=== PATIENT | female | born 1985 | race Caucasian/White ===

== ENCOUNTER 2017-05-04 12:10 | Emergency (ER) | payer OTHER ==
[2017-05-04 12:18] VITALS: RESP 18
[2017-05-04 12:50] LABS: Basophils % (A) 0 %; Eosinophils # (A) 0.1 k/uL (0-0.7); Eosinophils % (A) 1 %; HCT 38.5 % (34.0-46.0); HGB 12.9 gm/dL (11.4-16.0); Lymphocytes # (A) 2.7 k/uL (1.0-4.8); Lymphocytes % (A) 26 %; MCH 27.4 pg (25.0-35.0); MCHC 33.6 g/dL (31.0-37.0); MCV 81.6 fL (80.0-100.0); Mean Platelet Volume 7.6; Monocytes # (A) 0.5 k/uL (0-1.0); Monocytes % (A) 5 %; Neutrophils # (A) 6.7 k/uL (1.3-7.7); Neutrophils % (A) 66 %; Platelet Count 274 k/uL (150-450); RBC 4.72 m/uL (3.80-5.40); WBC 10.3 k/uL (3.8-10.6)
[2017-05-04 13:18] LABS: ALT 25 U/L (9-52); AST 27 U/L (14-36); Alkaline Phosphatase 68 U/L (38-126); Amylase 45 U/L (30-110); Anion Gap 16 mmol/L; Blood Urea Nitrogen 13 mg/dL (7-17); Calcium 10.2 mg/dL (8.4-10.2); Carbon Dioxide 23 mmol/L (22-30); Chloride 106 mmol/L (98-107); Glucose 78 mg/dL (74-99); Lipase 89 U/L (23-300); Potassium 3.8 mmol/L (3.5-5.1); Sodium 145 mmol/L (137-145); Total Bilirubin 1.4 mg/dL (0.2-1.3); Total Protein 8.2 g/dL (6.3-8.2)
[2017-05-04] MEDS ORDERED: KETOROLAC 30 MG/ML 1 ML VIAL IVP STA (13:51)
[2017-05-04] MEDS ORDERED: FAMOTIDINE 20 MG/2 ML VIAL IV STA (13:51)
[2017-05-04] MEDS ORDERED: ONDANSETRON 4 MG/2 ML VIAL IVP STA (13:51)
[2017-05-04] MEDS ORDERED: SODIUM CHLORIDE 0.9% 2,000 ML IV STA (13:52)
--- NOTE | 2017-05-04 13:59 | ED ---
Abdominal Pain HPI - General Chief Complaint: Abdominal Pain Stated Complaint: Abd Pain Time Seen by Provider: 05/04/17 13:39 Source: patient Mode of arrival: wheelchair Limitations: no limitations - History of Present Illness Initial Comments: Patient with history of Crohn's disease, denies other past medical history, presents with vomiting, abdominal pain. Patient states she drank alcohol last night which "not supposed to", states it always gives her similar symptoms to today. Patient states she woke up this morning and started vomiting, has had fatigue, body aches. Patient states she had a normal bowel movement this morning. Denies any blood in stool or vomit. Patient denies fevers, chills, changes in urination, vaginal bleeding or discharge, URI symptoms, cough. Patient states she was otherwise healthy and asymptomatic prior to onset of symptoms this morning. Patient states she is on tramadol and Xanax at home. Patient states she has ALLERGY to Reglan and Dilaudid. He states she can take Toradol, states it works very well for her pain usually. Patient denies history of liver disease. MD Complaint: abdominal pain - Related Data Home Medications Medication Instructions Recorded Confirmed ALPRAZolam [Xanax] 0.5 mg PO BID PRN 05/04/17 05/04/17 traMADol HCL [Ultram] 50 mg PO Q4HR PRN 05/04/17 05/04/17 Previous Rx's Medication Instructions Recorded Ondansetron Odt [Zofran Odt] 4 mg PO Q8HR PRN #10 tab 05/04/17 Allergies Allergy/AdvReac Type Severity Reaction Status Date / Time hydromorphone [From Dilaudid] Allergy Confusion Verified 05/04/17 13:36 naproxen Allergy Chest Pain Verified 05/04/17 13:36 Review of Systems ROS Statement: Those systems with pertinent positive or pertinent negative responses have been documented in the HPI. ROS Other: All systems not noted in ROS Statement are negative. Constitutional: Reports: weakness (generalized). Denies: fever, chills Eyes: Denies: vision change ENT: Denies: throat pain, congestion Respiratory: Denies: cough Cardiovascular: Denies: chest pain Endocrine: Reports: fatigue Gastrointestinal: Reports: abdominal pain, nausea, vomiting. Denies: diarrhea, constipation, hematemesis, melena, hematochezia Genitourinary: Denies: urgency, dysuria, frequency, hematuria, discharge Musculoskeletal: Reports: myalgia Skin: Denies: rash, change in color Neurological: Denies: headache Past Medical History Additional Past Medical History / Comment(s): crohns disease, IBS History of Any Multi-Drug Resistant Organisms: None Reported Past Surgical History: Section, Cholecystectomy Additional Past Surgical History / Comment(s): Jaw surgery Past Psychological History: Anxiety Smoking Status: Light tobacco smoker Past Alcohol Use History: Rare Past Drug Use History: None Reported General Exam - General Exam Comments Initial Comments: Sitting up on bed. No acute distress. Conversing normally. Calm, pleasant, smiling. Well appearing. Limitations: no limitations General appearance: alert, in no apparent distress Head exam: Present: atraumatic, normocephalic Eye exam: Present: normal appearance, PERRL, EOMI ENT exam: Present: mucous membranes moist Neck exam: Present: normal inspection Respiratory exam: Present: normal lung sounds bilaterally. Absent: respiratory distress, wheezes, rales, rhonchi Cardiovascular Exam: Present: regular rate, normal rhythm GI/Abdominal exam: Present: soft, normal bowel sounds, other (Abdomen soft nontender. McBurney's negative Mccurdy sign negative. ). Absent: distended, tenderness, guarding, rebound, rigid Extremities exam: Present: other (No gross deformities) Neurological exam: Present: alert, oriented X3 Psychiatric exam: Present: normal affect, normal mood Skin exam: Present: warm, dry, intact, normal color. Absent: rash, cyanosis, diaphoretic, erythema Course Vital Signs 05/04/17 12:14 Temperature 97.2 F L Pulse Rate 87 Respiratory 18 Rate Blood Pressure 121/78 O2 Sat by Pulse 100 Oximetry Medical Decision Making - Medical Decision Making Labs & xray ordered in triage. Xray cancelled, do not feel necessary at this time. No significant lab abnormalities. Do not feel any addition lab orders necessary at this time. Patient agrees to Toradol, Zofran, Pepcid, IV fluids. Denies allergy to Toradol , states it works well for her. Patient states she recently moved to [place] from [place] 2 years ago. States last visit to the hospital for Crohn's disease was over 2 years ago. UA neg Preg neg Patient reevaluated, states she's symptoms are resolved status post medications. States "now I'm good", gives a 'thumbs up'. Patient agrees to follow up primary care physician. We'll give prescription of Zofran. Oral hydration discussed. Abdominal pain resolved at this time. Abdomen remains nontender. Patient states arthralgias are resolved. States she's had similar arthralgias in the past, for which she was seen by underground repairer at [place], agrees to discuss with her underground repairer at [place]. Return to ER for new or worsening symptoms. Patient understands and agrees. - Lab Data Result diagrams: 05/04/17 12:44 05/04/17 12:44 Lab Results 05/04/17 05/04/17 05/04/17 Range/Units 12:44 12:44 14:30 WBC 10.3 (3.8-10.6) k/uL RBC 4.72 (3.80-5.40) m/uL Hgb 12.9 (11.4-16.0) gm/dL Hct 38.5 (34.0-46.0) % MCV 81.6 (80.0-100.0) fL MCH 27.4 (25.0-35.0) pg MCHC 33.6 (31.0-37.0) g/dL RDW 14.0 (11.5-15.5) % Plt Count 274 (150-450) k/uL Neutrophils % 66 % Lymphocytes % 26 % Monocytes % 5 % Eosinophils % 1 % Basophils % 0 % Neutrophils # 6.7 (1.3-7.7) k/uL Lymphocytes # 2.7 (1.0-4.8) k/uL Monocytes # 0.5 (0-1.0) k/uL Eosinophils # 0.1 (0-0.7) k/uL Basophils # 0.0 (0-0.2) k/uL Sodium 145 (137-145) mmol/L Potassium 3.8 (3.5-5.1) mmol/L Chloride 106 (98-107) mmol/L Carbon Dioxide 23 (22-30) mmol/L Anion Gap 16 mmol/L BUN 13 (7-17) mg/dL Creatinine 0.63 (0.52-1.04) mg/dL Est GFR (CKD-EPI)AfAm >90 (>60 ml/min/1.73 sqM) Est GFR (CKD-EPI)NonAf >90 (>60 ml/min/1.73 sqM) Glucose 78 (74-99) mg/dL Calcium 10.2 (8.4-10.2) mg/dL Total Bilirubin 1.4 H (0.2-1.3) mg/dL AST 27 (14-36) U/L ALT 25 (9-52) U/L Alkaline Phosphatase 68 (38-126) U/L Total Protein 8.2 (6.3-8.2) g/dL Albumin 5.0 (3.5-5.0) g/dL Amylase 45 (30-110) U/L Lipase 89 (23-300) U/L Urine Color Urine Appearance (Clear) Urine pH (5.0-8.0) Ur Specific [place] (1.001-1.035) Urine Protein (Negative) Urine Glucose (UA) (Negative) Urine Ketones (Negative) Urine Blood (Negative) Urine Nitrite (Negative) Urine Bilirubin (Negative) Urine Urobilinogen (<2.0) mg/dL Ur Leukocyte Esterase (Negative) Urine HCG, Qual Not Detected (Not Detectd) 05/04/17 Range/Units 14:30 WBC (3.8-10.6) k/uL RBC (3.80-5.40) m/uL Hgb (11.4-16.0) gm/dL Hct (34.0-46.0) % MCV (80.0-100.0) fL MCH (25.0-35.0) pg MCHC (31.0-37.0) g/dL RDW (11.5-15.5) % Plt Count (150-450) k/uL Neutrophils % % Lymphocytes % % Monocytes % % Eosinophils % % Basophils % % Neutrophils # (1.3-7.7) k/uL Lymphocytes # (1.0-4.8) k/uL Monocytes # (0-1.0) k/uL Eosinophils # (0-0.7) k/uL Basophils # (0-0.2) k/uL Sodium (137-145) mmol/L Potassium (3.5-5.1) mmol/L Chloride (98-107) mmol/L Carbon Dioxide (22-30) mmol/L Anion Gap mmol/L BUN (7-17) mg/dL Creatinine (0.52-1.04) mg/dL Est GFR (CKD-EPI)AfAm (>60 ml/min/1.73 sqM) Est GFR (CKD-EPI)NonAf (>60 ml/min/1.73 sqM) Glucose (74-99) mg/dL Calcium (8.4-10.2) mg/dL Total Bilirubin (0.2-1.3) mg/dL AST (14-36) U/L ALT (9-52) U/L Alkaline Phosphatase (38-126) U/L Total Protein (6.3-8.2) g/dL Albumin (3.5-5.0) g/dL Amylase (30-110) U/L Lipase (23-300) U/L Urine Color Yellow Urine Appearance Clear (Clear) Urine pH 8.0 (5.0-8.0) Ur Specific [place] 1.016 (1.001-1.035) Urine Protein Trace H (Negative) Urine Glucose (UA) Negative (Negative) Urine Ketones 4+ H (Negative) Urine Blood Negative (Negative) Urine Nitrite Negative (Negative) Urine Bilirubin Negative (Negative) Urine Urobilinogen <2.0 (<2.0) mg/dL Ur Leukocyte Esterase Negative (Negative) Urine HCG, Qual (Not Detectd) Disposition Clinical Impression: Abdominal pain, Nausea & vomiting Disposition: HOME SELF-CARE Condition: Good Instructions: Acute Nausea and Vomiting (ED), Abdominal Pain (ED) Additional Instructions: Follow up with your physician in 1 to 2 days. Return to ER for new or worsening symptoms. Discuss joint pains with your underground repairer. Prescriptions: Ondansetron Odt [Zofran Odt] 4 mg PO Q8HR PRN #10 tab PRN Reason: Nausea Referrals: Nonstaff,Physician [Primary Care Provider] - 1-2 days
[2017-05-04 14:39] LABS: Appearance,Urine Clear (Clear); Bilirubin,Urine Negative (Negative); Blood,Urine Negative (Negative); Color,Urine Yellow; Glucose,Urine (UA) Negative (Negative); Ketones,Urine 4+ (Negative); Leukocyte Esterase,Urine Negative (Negative); Nitrite,Urine Negative (Negative); Protein,Urine Trace (Negative); Specific Gravity,Urine 1.016 (1.001-1.035); Urobilinogen,Urine <2.0 mg/dL (<2.0)
[2017-05-04 15:18] VITALS: BP 123/75; PULSE 53; TEMP 97.8
== END 2017-05-04 15:24 | disposition home or self-care (01) ==
LOC: EC 12:10
DX: R10.9 Unspecified abdominal pain (principal); R11.2 Nausea with vomiting, unspecified; R53.83 Other fatigue; M79.1 Myalgia; Z88.5 Allergy status to narcotic agent; Z88.6 Allergy status to analgesic agent; Z90.49 Acquired absence of other specified parts of digestive tract
CPT/HCPCS: 36415; 80053; 82150; 83690; 85025; 81003; 81025; 99284; 96374; 96375 ×2; 96361; J2405; J1885

== ENCOUNTER 2018-05-25 17:14 | Emergency (ER) | payer OTHER ==
[2018-05-25] MEDS ORDERED: ONDANSETRON 4 MG/2 ML VIAL IVP STA (18:27)
[2018-05-25] MEDS ORDERED: SODIUM CHLORIDE 0.9% 1,000 ML IV STA (18:28)
[2018-05-25] MEDS ORDERED: ACETAMINOPHEN TAB 325 MG TAB PO STA (18:29)
--- NOTE | 2018-05-25 18:33 | ED ---
General Adult HPI - General Chief complaint: Nausea/Vomiting/Diarrhea Stated complaint: V/N/D Time Seen by Provider: 05/25/18 18:16 Source: patient, RN notes reviewed, old records reviewed Mode of arrival: ambulatory Limitations: no limitations - History of Present Illness Initial comments: 32-year-old female patient with past history of Crohn's disease, IBS presents to ED with approximately 4 days of nausea vomiting diarrhea, general malaise, fevers and chills at home. Patient reports that she has 2 children that are sick with similar symptoms. Patient believes that she has fluid or noro virus. Pt reports that she has had some mild dry coughing. Patient denies any abdominal pain. Patient denies any chest pain or shortness of breath. Systemic: Pt denies fatigue, myalgia, rash. Pt denies weakness, night sweats, weight loss. Neuro: Pt denies headache, visual disturbances, syncope or pre-syncope. HEENT: Pt denies ocular discharge or irritation, otalgia, rhinorrhea, pharyngitis or notable lymphadenopathy. Cardiopulmonary: Pt denies chest pain, SOB, heart palpitations, dyspnea on exertion. Abdominal/GI: Pt denies abdominal pain. : Pt denies dysuria, burning w/ urination, frequency/urgency. Denies new onset urinary or bowel incontinence. MSK: Pt denies myalgia, loss of strength or function in extremities. Neuro: Pt denies new onset weakness, paresthesias. - Related Data Home Medications Medication Instructions Recorded Confirmed ALPRAZolam [Xanax] 0.5 mg PO BID PRN 05/04/17 05/25/18 Previous Rx's Medication Instructions Recorded Ondansetron Odt [Zofran ODT] 4 mg PO Q8HR PRN #20 tab 05/25/18 Allergies Allergy/AdvReac Type Severity Reaction Status Date / Time hydromorphone [From Dilaudid] Allergy Confusion Verified 05/25/18 18:21 metoclopramide [From Reglan] Allergy Unknown Verified 05/25/18 18:21 naproxen Allergy Chest Pain Verified 05/25/18 18:21 Review of Systems ROS Statement: Those systems with pertinent positive or pertinent negative responses have been documented in the HPI. ROS Other: All systems not noted in ROS Statement are negative. Past Medical History Additional Past Medical History / Comment(s): crohns disease, IBS History of Any Multi-Drug Resistant Organisms: None Reported Past Surgical History: Section, Cholecystectomy Additional Past Surgical History / Comment(s): Jaw surgery Past Psychological History: Anxiety, PTSD Smoking Status: Light tobacco smoker Past Alcohol Use History: Rare Past Drug Use History: Marijuana General Exam - General Exam Comments Initial Comments: Constitutional: NAD, AOX3, Pt has pleasant affect. HEENT: NC/AT, trachea midline, neck supple, no lymphadenopathy. Posterior pharynx non erythematous, without exudates. External ears appear normal, without discharge. Mucous membranes moist. Eyes PERRLA, EOM intact. There is no scleral icterus. No pallor noted. Cardiopulmonary: RRR, no murmurs, rubs or gallops, no JVD noted. Lungs CTAB in anterior and posterior villagran. No peripheral edema. Abdominal exam: Abdomen soft and non-distended. Abdomen non-tender to palpation in all 4 quadrants. Bowel sounds active in LLQ. No hepatosplenomegaly. No ecchymosis Neuro: CN II-XII grossly intact. No nuchal rigidity. MSK: No posterior calf tenderness bilaterally, homans sign negative bilaterally. Posterior tibialis and radial pulse +2 bilaterally. Sensation intact in upper and lower extremities. Full active ROM in upper and lower extremities, 5/5 stregnth. Limitations: no limitations Course Vital Signs 05/25/18 17:21 Temperature 98.6 F Pulse Rate 88 Respiratory 20 Rate Blood Pressure 107/73 O2 Sat by Pulse 100 Oximetry Medical Decision Making - Medical Decision Making 32-year-old female patient with past history of Crohn's disease, IBS presents to ED with approximately 4 days of nausea vomiting diarrhea, general malaise, fevers and chills at home. Patient reports that she has 2 children that are s ick with similar symptoms. Patient believes that she has fluid or noro virus. Pt reports that she has had some mild dry coughing. Patient vital signs stable, afebrile. Physical exam displayed nontender abdomen. Laboratory investigations revealed mild leukocytosis of 13.6. CO2 mildly decreased at 19, bilirubin mildly increased at 3.2. UA is negative. Influenza is negative. Chest x-ray and KUB did not display any acute process. Patient improved with IV fluids, Zofran. Patient likely has viral gastroenteritis-like syndrome. Patient to be discharged with Zofran to use for nausea. Patient referred to [facility] for primary care provider. Patient will follow-up with them tomorrow. Patient will return to ER condition worsens in any way. Case discussed with Dr. Villeda. - Lab Data Result diagrams: 05/25/18 16:41 05/25/18 16:41 Lab Results 05/25/18 05/25/18 05/25/18 Range/Units 16:41 16:41 18:54 WBC 13.6 H (3.8-10.6) k/uL RBC 5.12 (3.80-5.40) m/uL Hgb 14.6 (11.4-16.0) gm/dL Hct 43.5 (34.0-46.0) % MCV 84.9 (80.0-100.0) fL MCH 28.4 (25.0-35.0) pg MCHC 33.5 (31.0-37.0) g/dL RDW 13.2 (11.5-15.5) % Plt Count 320 (150-450) k/uL Neutrophils % 85 % Lymphocytes % 10 % Monocytes % 3 % Eosinophils % 1 % Basophils % 0 % Neutrophils # 11.6 H (1.3-7.7) k/uL Lymphocytes # 1.3 (1.0-4.8) k/uL Monocytes # 0.4 (0-1.0) k/uL Eosinophils # 0.1 (0-0.7) k/uL Basophils # 0.0 (0-0.2) k/uL Sodium 142 (137-145) mmol/L Potassium 3.9 (3.5-5.1) mmol/L Chloride 107 (98-107) mmol/L Carbon Dioxide 19 L (22-30) mmol/L Anion Gap 16 mmol/L BUN 21 H (7-17) mg/dL Creatinine 0.73 (0.52-1.04) mg/dL Est GFR (CKD-EPI)AfAm >90 (>60 ml/min/1.73 sqM) Est GFR (CKD-EPI)NonAf >90 (>60 ml/min/1.73 sqM) Glucose 89 (74-99) mg/dL Calcium 10.2 (8.4-10.2) mg/dL Total Bilirubin 3.2 H (0.2-1.3) mg/dL AST 21 (14-36) U/L ALT 26 (9-52) U/L Alkaline Phosphatase 79 (38-126) U/L Total Protein 8.7 H (6.3-8.2) g/dL Albumin 5.1 H (3.5-5.0) g/dL Lipase (23-300) U/L Urine Color Urine Appearance (Clear) Urine pH (5.0-8.0) Ur Specific [place] (1.001-1.035) Urine Protein (Negative) Urine Glucose (UA) (Negative) Urine Ketones (Negative) Urine Blood (Negative) Urine Nitrite (Negative) Urine Bilirubin (Negative) Urine Urobilinogen (<2.0) mg/dL Ur Leukocyte Esterase (Negative) Urine RBC (0-5) /hpf Urine WBC (0-5) /hpf Ur Squamous Epith Cells (0-4) /hpf Urine Mucus (None) /hpf Influenza Type A RNA Not Detected (Not Detectd) Influenza Type B (PCR) Not Detected (Not Detectd) 05/25/18 05/25/18 Range/Units 19:04 19:04 WBC (3.8-10.6) k/uL RBC (3.80-5.40) m/uL Hgb (11.4-16.0) gm/dL Hct (34.0-46.0) % MCV (80.0-100.0) fL MCH (25.0-35.0) pg MCHC (31.0-37.0) g/dL RDW (11.5-15.5) % Plt Count (150-450) k/uL Neutrophils % % Lymphocytes % % Monocytes % % Eosinophils % % Basophils % % Neutrophils # (1.3-7.7) k/uL Lymphocytes # (1.0-4.8) k/uL Monocytes # (0-1.0) k/uL Eosinophils # (0-0.7) k/uL Basophils # (0-0.2) k/uL Sodium (137-145) mmol/L Potassium (3.5-5.1) mmol/L Chloride (98-107) mmol/L Carbon Dioxide (22-30) mmol/L Anion Gap mmol/L BUN (7-17) mg/dL Creatinine (0.52-1.04) mg/dL Est GFR (CKD-EPI)AfAm (>60 ml/min/1.73 sqM) Est GFR (CKD-EPI)NonAf (>60 ml/min/1.73 sqM) Glucose (74-99) mg/dL Calcium (8.4-10.2) mg/dL Total Bilirubin (0.2-1.3) mg/dL AST (14-36) U/L ALT (9-52) U/L Alkaline Phosphatase (38-126) U/L Total Protein (6.3-8.2) g/dL Albumin (3.5-5.0) g/dL Lipase 88 (23-300) U/L Urine Color Yellow Urine Appearance Cloudy H (Clear) Urine pH 5.5 (5.0-8.0) Ur Specific [place] 1.035 (1.001-1.035) Urine Protein 1+ H (Negative) Urine Glucose (UA) Negative (Negative) Urine Ketones 4+ H (Negative) Urine Blood Moderate H (Negative) Urine Nitrite Negative (Negative) Urine Bilirubin Negative (Negative) Urine Urobilinogen 2.0 (<2.0) mg/dL Ur Leukocyte Esterase Negative (Negative) Urine RBC 4 (0-5) /hpf Urine WBC <1 (0-5) /hpf Ur Squamous Epith Cells 5 H (0-4) /hpf Urine Mucus Many H (None) /hpf Influenza Type A RNA (Not Detectd) Influenza Type B (PCR) (Not Detectd) Disposition Clinical Impression: Nausea vomiting and diarrhea Disposition: HOME SELF-CARE Condition: Stable Instructions (If sedation given, give patient instructions): Acute Diarrhea (ED), Acute Nausea and Vomiting (ED), Nutrition Tips for Relief of Diarrhea (ED) Additional Instructions: Patient to adhere to previously discussed treatment plan and will take med ication(s) as directed. Patient to follow up with PCP in 1-2 days. Patient to return to ED if symptoms do not improve. [facility] Please return to ER condition worsens in any way. Please Zofran as needed for nausea. Prescriptions: Ondansetron Odt [Zofran ODT] 4 mg PO Q8HR PRN #20 tab PRN Reason: Nausea Is patient prescribed a controlled substance at d/c from ED?: No Referrals: None,Stated [Primary Care Provider] - 1-[address] [facility] [[facility]] - 1-2 days
[2018-05-25 18:49] LABS: Basophils % (A) 0 %; Eosinophils # (A) 0.1 k/uL (0-0.7); Eosinophils % (A) 1 %; HCT 43.5 % (34.0-46.0); HGB 14.6 gm/dL (11.4-16.0); Lymphocytes # (A) 1.3 k/uL (1.0-4.8); Lymphocytes % (A) 10 %; MCH 28.4 pg (25.0-35.0); MCHC 33.5 g/dL (31.0-37.0); MCV 84.9 fL (80.0-100.0); Monocytes # (A) 0.4 k/uL (0-1.0); Monocytes % (A) 3 %; Neutrophils # (A) 11.6 k/uL (1.3-7.7); Neutrophils % (A) 85 %; Platelet Count 320 k/uL (150-450); RBC 5.12 m/uL (3.80-5.40); RDW 13.2 % (11.5-15.5); WBC 13.6 k/uL (3.8-10.6)
--- NOTE | 2018-05-25 18:55 | XR ---
EXAMINATION TYPE: XR chest 2V DATE OF EXAM: 05/25/2018 COMPARISON: NONE HISTORY: Chest pain with nausea vomiting and diarrhea. TECHNIQUE: Frontal and lateral views of the chest are obtained. FINDINGS: There is no focal air space opacity, pleural effusion, or pneumothorax seen. The cardiac silhouette size is within normal limits. The osseous structures are intact. IMPRESSION: No acute cardiopulmonary process.
--- NOTE | 2018-05-25 18:56 | XR ---
EXAMINATION TYPE: XR KUB DATE OF EXAM: 05/25/2018 6:51 PM CLINICAL HISTORY: Abdominal pain with nausea vomiting and diarrhea. TECHNIQUE: Two Upright KUB images of the abdomen are obtained. COMPARISON: None. FINDINGS: Some paucity of bowel gas is present. Scattered gas is seen in non-distended stomach and sm all bowel loops. Air-fluid level in stomach is seen. Gas and fecal material is seen in non-distended colon. Scattered air-fluid levels in right pelvic colonic loops noted. Nonspecific finding. Cholecyst ectomy clips are seen. Left-sided pelvic phlebolith is noted. No pneumoperitoneum is present. Visuali zed lung bases are clear. Visualized osseous structures are intact. IMPRESSION: Overall nonobstructive bowel gas pattern.
[2018-05-25 18:57] LABS: ALT 26 U/L (9-52); AST 21 U/L (14-36); Albumin 5.1 g/dL (3.5-5.0); Alkaline Phosphatase 79 U/L (38-126); Anion Gap 16 mmol/L; Blood Urea Nitrogen 21 mg/dL (7-17); Calcium 10.2 mg/dL (8.4-10.2); Carbon Dioxide 19 mmol/L (22-30); Chloride 107 mmol/L (98-107); Glucose 89 mg/dL (74-99); Potassium 3.9 mmol/L (3.5-5.1); Sodium 142 mmol/L (137-145); Total Bilirubin 3.2 mg/dL (0.2-1.3); Total Protein 8.7 g/dL (6.3-8.2)
[2018-05-25 19:16] LABS: Appearance,Urine Cloudy (Clear); Bilirubin,Urine Negative (Negative); Blood,Urine Moderate (Negative); Color,Urine Yellow; Glucose,Urine (UA) Negative (Negative); Ketones,Urine 4+ (Negative); Leukocyte Esterase,Urine Negative (Negative); Mucus,Urine Many /hpf; Nitrite,Urine Negative (Negative); PH, Urine 5.5 (5.0-8.0); Protein,Urine 1+ (Negative); RBC,Urine 4 /hpf (0-5); Specific Gravity,Urine 1.035 (1.001-1.035); Squamous Epithelial Cell,Urine 5 /hpf (0-4)
[2018-05-25 21:01] VITALS: BP 126/78; PULSE 64; RESP 18; TEMP 98.7
== END 2018-05-25 20:55 | disposition home or self-care (01) ==
LOC: EC 17:14
DX: R11.2 Nausea with vomiting, unspecified (principal); R19.7 Diarrhea, unspecified; R53.81 Other malaise; R50.9 Fever, unspecified; D72.829 Elevated white blood cell count, unspecified; R79.81 Abnormal blood-gas level; E80.7 Disorder of bilirubin metabolism, unspecified; F17.200 Nicotine dependence, unspecified, uncomplicated; Z88.5 Allergy status to narcotic agent; Z88.8 Allergy status to other drugs, medicaments and biological substances
CPT/HCPCS: 36415; 80053; 83690; 85025; 81001; 87502; 71046; 74018; 99284; 96374; 96361; J2405

== ENCOUNTER → 2018-12-24 | Outpatient (CLI) | payer OTHER ==
[2018-12-24 09:21] VITALS: BP 139/97; PULSE 91; RESP 16; TEMP 98.8; BMI 19.0
--- NOTE | 2018-12-24 10:07 | P.GSHP ---
History of Present Illness H&P Date: 12/24/18 Chief Complaint: Breast pain, nipple discharge, anxiety regarding possibility of breast canc Jasmyn is a 33-year-old white female who presents for breast evaluation. Reportedly approximately 2 years ago she began complaining of uncontrolled itching under both her breast as well as the superior aspect of the breast. The itching is intermittent in nature. She does not have any rash. It is not associated with any specific clothing or detergents that she is aware of. At times she feels pain greater in the left breast. The pain is in the upper outer quadrant area of the left breast it is not associated with her menstrual cycles. The patient states when the pain comes the left breast upper outer quadrant area is more fall in nature. The pain spreads under her arm into her nipple. The patient does not feel any discrete lumps or masses in her breasts. She would rate the pain as a 6, and then she tries to express fluid from her nipple. When she expresses fluid the pain improves and is patterson in color. This helps the pain. Warm baths help the pain. The patient does have left nipple derrick discharge. She has not noted any red blood in the discharge. It only comes if expressed it does not leak on its own. She had a normal prolactin level of 3.8 on 10-14-18. She had a bilateral mammogram performed on the recommendation was for a left breast ultrasound no other suspicious masses were identified this was a BIRADS-0. Left breast ultrasound was performed which did not reveal any specific solid or cystic lesions. The patient drinks coffee daily. The patient smokes 2 times/month. She is exposed to 2nd hand smoke. She does eat chocolate regularly. The patient does drink soy milk. Family History: 1. maternal grandfather: skin cancer 2. maternal grandmother: cervical cancer 3. mother: cervical cancer 4. father: lung Hormonal History: menarche; 11 , breast fed: yes, first born at 17 periods regular BCP: 6 years, been off for 6 years hormones: none Surgical history: 1. 4 C-sections 2. Fractured jaw 3. cholcystectomy Medical history: 1. IBS possible chroans 2. weight loss 3. anxiety 4. PID 5. breast pain Social History: smoke: occasional alcohol: occasional drugs: Marijuana daily to relax - Constitutional Comment: mood swings Constitutional: Denies chills, Denies fever - EENT Eyes: bilateral blurred vision, bilateral pain (left side, ? sinus pressure, left tooth infection) Ears: left: decreased hearing, tinnitus Ears, nose, mouth and throat: Denies headache, Denies sore throat - Breasts Breasts: bilateral: as per HPI - Cardiovascular Cardiovascular: Reports chest pain, Reports shortness of breath - Respiratory Comment: smoker - Gastrointestinal Comment: IBS Gastrointestinal: Reports diarrhea - Genitourinary (Female) Genitourinary: Denies dysuria, Denies hematuria - Menstruation Menstruation: Reports period normal - Genitourinary (Male) Comment: Pelvic inflammatory disease - Musculoskeletal Comment: joint pain, Systemic immune disease resulting in intermittent joint pain treated at [place] - Integumentary Integumentary: Reports pruritus - Neurological Neurological: Reports numbness, Reports weakness - Psychiatric Comment: post traumatic stress disorder Psychiatric: Reports anxiety - Endocrine Comment: 30 pound weight loss ? stress related Endocrine: Reports weight change - Hematologic/Lymphatic Comment: none - Allergic/Immunologic Allergic/Immunologic: Reports as per HPI Past Medical History Additional Past Medical History / Comment(s): crohns disease, IBS History of Any Multi-Drug Resistant Organisms: None Reported Past Surgical History: Section, Cholecystectomy Additional Past Surgical History / Comment(s): Jaw surgery Past Psychological History: Anxiety, PTSD Smoking Status: Light tobacco smoker Past Alcohol Use History: Rare Past Drug Use History: Marijuana Medications and Allergies Home Medications Medication Instructions Recorded Confirmed Type ALPRAZolam [Xanax] 0.5 mg PO BID PRN 05/04/17 05/25/18 History Ondansetron Odt [Zofran ODT] 4 mg PO Q8HR PRN #20 tab 05/25/18 Rx Allergies Allergy/AdvReac Type Severity Reaction Status Date / Time hydromorphone [From Dilaudid] Allergy Confusion Verified 12/24/18 09:21 metoclopramide [From Reglan] Allergy Unknown Verified 12/24/18 09:21 naproxen Allergy Chest Pain Verified 12/24/18 09:21 tioconazole Allergy Swelling Unverified 12/24/18 09:23 [From Monistat 1 (tioconazole)] Surgical - Exam Vital Signs Temp Pulse Resp BP Pulse Ox 98.8 F 91 16 139/97 100 12/24/18 09:17 12/24/18 09:17 12/24/18 09:17 12/24/18 09:17 12/24/18 09:17 BMI 19.1 - General thin moderate distress - Eyes normal ocular movement - ENT normal pinna, no hearing loss - Neck no masses, trachea midline - Respiratory normal expansion, normal respiratory effort, clear to auscultation - Cardiovascular Rhythm: regular Heart Sounds: normal: S1, S2 - Abdomen liver/spleen non enlarged normal bowel sounds Abdomen: soft, non tender, bowel sounds - Integumentary normal turgor No evidence of any fungal infection under the breast Questionable enlarged follicles on the anterior breast bilateral but no definite infection - Neurologic no disoriented, no combative - Musculoskeletal normal gait - Psychiatric oriented to time, oriented to person, oriented to place, speech is normal, memory intact breast exam: bra 34C-D Breasts: Multi-positional exam fibrocystic changes, ptotic breast, no dominant masses or nodules of concern Right axilla: Shoddy adenopathy Left breast: multi-positional exam fibrocystic changes increased tissue in the upper outer quadrant areas, patient results in nipple discharge and the 8 o'clock position this is a quite active and it is guaiac positive Left axilla: Shoddy adenopathy Guaiac of nipple discharge is positive for blood Results Mammogram and ultrasound results reviewed Assessment and Plan Assessment: Impression: 1. IBS possible chroans 2. weight loss 3. anxiety 4. PID 5. breast pain 6. Pruritus both breast 7. Bloody nipple discharge left breast 8. Shotty axillary adenopathy 9. Family history of cancer Plan: 1. Duct exploration guaiac positive discharge 2. Close surveillance shotty axillary adenopathy 3. Patient is going to attempt to decrease caffeine intake, chocolate intake, and smoking and she understands that these are related to breast pain 4. Assurance related to cancer risk 5. Medical management of medical conditions CC: Dr. Yo 50 minutes spent with over 50% in face to face discussion of disease.
== END | disposition home or self-care (01) ==
LOC: WWCWWP 09:10
PROVIDERS: ATTEND Surgery
DX: Z53.9 Procedure and treatment not carried out, unspecified reason (principal)

== ENCOUNTER → 2018-12-28 | Outpatient (CLI) | payer OTHER ==
--- NOTE | 2018-12-28 20:06 | US ---
EXAMINATION TYPE: US pelvic complete DATE OF EXAM: 12/28/2018 COMPARISON: NONE CLINICAL HISTORY: R10.2 Pelvic Pain, R14.0 Bloating. Pelvic pain x 2 weeks, history of 4 c-sections TECHNIQUE: Transabdominal (TA). Patient refusing TV exam at this time Date of LMP: 12/26/18 EXAM MEASUREMENTS: Uterus: 9.1 x 4.2 x 4.7 cm Endometrial Stripe: 0.5 cm Right Ovary: 3.0 x 1.7 x 2.7 cm Left Ovary: 6.2 x 2.7 x 2.8 cm 1. Uterus: Anteverted heterogeneous 2. Endometrium: appears wnl as visualized 3. Right Ovary: wnl 4. Left Ovary: enlarged with cystic area = 2.3 x 2.1 x 2.8cm and complex area = 2.7 x 2.1 x 2.3cm 5. Bilateral Adnexa: appears wnl 6. Posterior cul-de-sac: wnl Markedly heterogeneous anteverted uterus. Endometrial stripe within normal limits. No free fluid in p elvic cul-de-sac. Left ovary is asymmetrically enlarged with 2.7 cm thick-walled cystic lesion probable hemorrhagic cys t and 2.3 cm thin-walled cyst with some internal echoes noted. IMPRESSION: Probable 2.7 cm hemorrhagic cyst left ovary. Suboptimal study as patient refused transvag inal investigation.
== END | disposition home or self-care (01) ==
LOC: RADUSWWP 16:37
PROVIDERS: ATTEND Family Medicine
DX: R10.2 Pelvic and perineal pain (principal); R14.0 Abdominal distension (gaseous); Z88.6 Allergy status to analgesic agent; Z88.8 Allergy status to other drugs, medicaments and biological substances
CPT/HCPCS: 76856

== ENCOUNTER 2019-01-05 13:23 | Day surgery (SDC) | payer BC, OTHER ==
[2019-01-01 13:13] VITALS: BMI 18.8
[~2019-01-05 13:23] MED LIST: DEXAMETHASONE SOD PHOSPHATE 10 MG/ML 1 ML VIAL IV ONE; HEPARIN SODIUM,PORCINE 5,000 UNIT/ML 1 ML VIAL SQ ONE; LACTATED RINGERS 1,000 ML IV SCH; MIDAZOLAM 2 MG/2 ML VIAL IV PRN; ONDANSETRON 4 MG/2 ML VIAL IVP ONE; Pre Op ABX Message 1 EACH MISC MISCELLANE ONE; SCOPOLAMINE 1.5MG/72HR PATCH TRANSDERM ONE; fentaNYL (PF) 50 MCG/ML 2 ML AMP IV PRN
[2019-01-05] MEDS ORDERED: ACETAMINOPHEN TAB 500 MG TAB PO ONE ×3 (13:55→14:09)
[2019-01-05] MEDS ORDERED: KETOROLAC 30 MG/ML 1 ML VIAL ONE (14:15)
[2019-01-05] MEDS ORDERED: SUCCINYLCHOLINE CHLORIDE 100 MG/5 ML SYR IV ONE (14:15)
[2019-01-05] MEDS ORDERED: PROPOFOL 10 MG/ML 20 ML VIAL IV ONE (14:15)
[2019-01-05] MEDS ORDERED: LIDOCAINE 1% INJ 10MG/ML (20 ML MDV) ONE (14:15)
[2019-01-05] MEDS ORDERED: MIDAZOLAM 2 MG/2 ML VIAL ONE (14:15)
[2019-01-05] MEDS ORDERED: HEPARIN SODIUM,PORCINE 5,000 UNIT/ML 1 ML VIAL SQ ONE (14:25)
--- NOTE | 2019-01-05 14:25 | P.PN ---
Progress Note - Text Progress Note Date: 01/05/19 Preoperatively I discussed with the patient incision placement. We've talked about doing a crescent mastopexy which resulted in asymmetric elevation of the nipple areolar complexon on the left to the contralateral side. The patient understands this and wishes this to be performed. She understands that the location of the nipple areolar complex will be somewhat asymmetric. The other option was to do a periareolar incision which, however, she prefers the procedure be done via a mastopexy incision. She understands the risks and benefits and wishes to proceed.
[2019-01-05] MEDS ORDERED: LIDOCAINE 1% INJ 10MG/ML (20 ML MDV) SQ ONE (14:41)
[2019-01-05] MEDS ORDERED: LACTATED RINGERS 1,000 ML IV ONE (15:19)
--- NOTE | 2019-01-05 15:35 | P.OP ---
Date of Procedure: 01/05/19 Preoperative Diagnosis: bloody nipple discharge left breast 8:00 Postoperative Diagnosis: same Procedure(s) Performed: Left breast duct exploration. [place] mastopexy Anesthesia: EMBER Surgeon: Aura White Estimated Blood Loss (ml): 10 IV fluids (ml): 800 Pathology: other (Breast tissue) Condition: stable Disposition: same day Indications for Procedure: Left breast nipple discharge bloody Operative Findings: Dilated ducts left breast Description of Procedure: The patient was taken to the operating room and following induction of anesthesia the left breast was prepped and draped in a sterile fashion. A peripheral margin probe was used to our The area and the areas of the crescent mastopexy incision would be performed. This was 2 cm proximal to the aerolar complex. The skin was scored. De- epithelialized. The area of the breast was injected at the medial aspect of the mastopexy de-epithelialized area. The breast tissue was followed down to the area of the dilated duct at 8:00. The surrounding tissue underneath the nipple areolar complex was excised. This was followed from removed in the periareolar complex posteriorly to the chest wall. Surrounding tissue was excised being careful to maintain hemostasis using electrocautery device. The breast was very ptotic. After this had been removed titanium clips were placed in the area. The deep tissues were reapproximated using 3-0 Vicryl suture. The wound was well irrigated prior to this. The superficial tissues were closed with 3-0 Vicryl suture followed by 4-0 Monocryl closure of the skin. The patient tolerated the procedure in stable condition. The specimen was painted for orientation. All instrument and sponge counts were correct at the end of the case. An renetta pressure wrap was placed.
--- NOTE | 2019-01-05 15:37 | P.DS ---
Providers Attending physician: Aura White Primary care physician: Valdo Yo Plan - Discharge Summary Discharge Rx Participant: Yes New Discharge Prescriptions: No Action Multivitamins, Thera [Multivitamin (formulary)] 1 tab PO DAILY ALPRAZolam [Xanax] 0.25 - 0.5 mg PO TID PRN PRN Reason: Anxiety Discharge Medication List ALPRAZolam [Xanax] 0.25 - 0.5 mg PO TID PRN 01/01/19 [History] Multivitamins, Thera [Multivitamin (formulary)] 1 tab PO DAILY 01/01/19 [History] Follow up Appointment(s)/Referral(s): Aura White MD [STAFF PHYSICIAN] - 1 Week Patient Instructions/Handouts: *Surgery [facility] - Scopalamine Patch Instructions Activity/Diet/Wound Care/Special Instructions: do not drive for 24 hours may shower after 48 hours wear renetta wrap at all times Discharge Disposition: HOME SELF-CARE
[2019-01-05 15:56] VITALS: TEMP 96.8
[2019-01-05] MEDS ORDERED: HYDROmorphone 1 MG/ML 1 ML SYRINGE IVP ONE (15:56)
[2019-01-05 15:57] VITALS: RESP 16
[2019-01-05] MEDS ORDERED: LORazepam 2 MG/ML INJ IV ONE (16:03)
[2019-01-05 16:55] VITALS: BP 19/84; PULSE 53
== END 2019-01-05 17:18 | disposition home or self-care (01) ==
LOC: OR 13:23
PROVIDERS: ATTEND Surgery
DX: N60.12 Diffuse cystic mastopathy of left breast (principal); N60.42 Mammary duct ectasia of left breast; R59.0 Localized enlarged lymph nodes; L29.8 Other pruritus; F41.9 Anxiety disorder, unspecified; K58.9 Irritable bowel syndrome, unspecified; H91.92 Unspecified hearing loss, left ear; H93.12 Tinnitus, left ear; H53.8 Other visual disturbances; H57.13 Ocular pain, bilateral; R20.0 Anesthesia of skin; R53.1 Weakness; M25.50 Pain in unspecified joint; D89.89 Other specified disorders involving the immune mechanism, not elsewhere classified; F43.10 Post-traumatic stress disorder, unspecified; R63.4 Abnormal weight loss; R11.2 Nausea with vomiting, unspecified; F17.210 Nicotine dependence, cigarettes, uncomplicated; Z88.5 Allergy status to narcotic agent; Z88.8 Allergy status to other drugs, medicaments and biological substances; Z88.6 Allergy status to analgesic agent; Z98.890 Other specified postprocedural states; Z87.81 Personal history of (healed) traumatic fracture; Z90.49 Acquired absence of other specified parts of digestive tract; Z87.42 Personal history of other diseases of the female genital tract; Z79.899 Other long term (current) drug therapy; Z86.79 Personal history of other diseases of the circulatory system; Z80.8 Family history of malignant neoplasm of other organs or systems; Z80.49 Family history of malignant neoplasm of other genital organs; Z80.1 Family history of malignant neoplasm of trachea, bronchus and lung
CPT/HCPCS: 19316; 19120; 81025; 88307; J2250; J2060; J1644; J1100; J2405; J2001; J1885; J1170; J0330; J2704

== ENCOUNTER → 2019-01-14 | Outpatient (CLI) | payer BC, OTHER ==
[2019-01-14 15:49] VITALS: BP 110/76; PULSE 79; RESP 16; TEMP 98.5; BMI 18.5
--- NOTE | 2019-01-14 16:14 | P.PN ---
Progress Note - Text Progress Note Date: 01/14/19 Jasmyn is a 33-year-old white female status post left breast duct exploration performed on . Pathology was benign. Patient postoperatively has done very well. She has no complaints. This was done for bloody nipple discharge. Physical exam: Incision clean and dry Ecchymosis which is resolving No evidence of any infection In the lateral inferior aspect of the cyst periareolar incision. Is a small amount of suture which is extruding the patient is going to leave this as it aleisha uld dissolve on its own and if not then patient will be seen in 2 weeks we can clip that area Impression: Benign pathology status post duct exploration Plan: Left breast mammogram in 6 months with physician examined that time At that time we will reevaluate the right breast to determine if a symmetry procedure would be desired by the patient CC: Dr. Yo
== END | disposition home or self-care (01) ==
LOC: WWCWWP 15:39
PROVIDERS: ATTEND Surgery
DX: Z53.9 Procedure and treatment not carried out, unspecified reason (principal)

== ENCOUNTER 2019-10-02 12:53 | Emergency (ER) | payer BC, OTHER ==
--- NOTE | 2019-10-02 13:33 | XR ---
EXAMINATION TYPE: XR hand complete LT DATE OF EXAM: 10/02/2019 COMPARISON: NONE HISTORY: Pain and swelling fifth metacarpal TECHNIQUE: Three views are submitted. FINDINGS: The osseous structures are intact. The joint spaces are preserved and there is no acute fracture or dislocation. IMPRESSION: 1. No definite acute fracture or dislocation if symptoms persist, follow-up study in 7 to 10 days wo uld be suggested
--- NOTE | 2019-10-02 13:39 | ED ---
Upper Extremity HPI - General Chief Complaint: Extremity Injury, Upper Stated Complaint: L Hand Injury,Syncope Time Seen by Provider: 10/02/19 13:00 Source: patient Mode of arrival: ambulatory Limitations: no limitations - History of Present Illness Initial Comments: 34-year-old female who denies any smoking a past history aside from having syncopal spells after pain or blood draws. 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 Denies open lacerations or abrasions. Patient states she is able to fully open and close all 5 digits. Patient states that while she was driving to the hospital she opened her hand for the first time and felt significant pain she states she felt lightheaded like she was going to pass out she states this has happened before she's had her knee hard or her elbow. Patient states that she put her car parked she states she felt lightheaded she states that she lost vision but did not lose hearing. Patient said she came to and asked for help she states that a nearby man drove her to the hospital patient denied any chest pain shortness of breath patient states that she no longer feels lightheaded. Patient has no other complaints upon arrival she appears well no signs of acute distress denies any cardiac history - Related Data Home Medications Medication Instructions Recorded Confirmed ALPRAZolam [Xanax] 0.25 - 0.5 mg PO TID PRN 01/01/19 01/05/19 Multivitamins, Thera [Multivitamin 1 tab PO DAILY 01/01/19 01/01/19 (formulary)] Allergies Allergy/AdvReac Type Severity Reaction Status Date / Time hydromorphone [From Dilaudid] Allergy Confusion Verified 01/05/19 13:36 metoclopramide [From Reglan] Allergy Unknown Verified 01/05/19 13:36 naproxen Allergy Chest Pain Verified 01/05/19 13:36 tioconazole Allergy Swelling Unverified 01/05/19 13:36 [From Monistat 1 (tioconazole)] Review of Systems ROS Statement: Those systems with pertinent positive or pertinent negative responses have been documented in the HPI. ROS Other: All systems not noted in ROS Statement are negative. Past Medical History Past Medical History: Syncope Additional Past Medical History / Comment(s): Hx Vertigo. Hx syncope since 2nd grade, no problems in 2 yrs. Crohns disease, IBS. Hx "elevated heart rate a few times during medical procedures." Elevated liver enzymes on 2 occasions, hx kidney stones. "Sysytemic reaction to stress that causes joint pain." Left breast discharge X8 months with pain that comes and goes. Chronic nausea. History of Any Multi-Drug Resistant Organisms: None Reported Past Surgical History: Section, Cholecystectomy Additional Past Surgical History / Comment(s): Jaw surgery X2. Section X4. Past Anesthesia/Blood Transfusion Reactions: Motion Sickness, Postoperative Nausea & Vomiting (PONV) Additional Past Anesthesia/Blood Transfusion Reaction / Comment(s): Hx problems with elevated heart rate during surgeries. Past Psychological History: Anxiety, PTSD Past Alcohol Use History: Occasional Past Drug Use History: Marijuana - Past Family History Father Family Medical History: Cancer Additional Family Medical History / Comment(s): Lung cancer. Mother Family Medical History: Cancer Additional Family Medical History / Comment(s): Cervical cancer. General Exam - General Exam Comments Initial Comments: General: The patient is awake and alert, in no distress, and does not appear acutely ill. Eye: Pupils are equal, round and reactive to light, extra-ocular movements are intact. No nystagmus. There is normal conjunctiva bilaterally. No signs of icterus. Ears, nose, mouth and throat: There are moist mucous membranes and no oral lesions. Neck: The neck is supple, there is no tenderness or JVD. Cardiovascular: There is a regular rate and rhythm. No murmur, rub or gallop is appreciated. Respiratory: Lungs are clear to auscultation, respirations are non-labored, breath sounds are equal. No wheezes, stridor, rales, or rhonchi. Musculoskeletal: Upon inspection of the hands bilaterally there is bruising over the fifth digit near the metacarpal head. Full rom of the MCP DIP and PIP joints. No anatomical snuffbox tenderness for age motion at the wrist bilaterally strength intact H joint sensation intact proximal and distal to injury site capillary refill less than 3 seconds. Pulses +2 equal bilaterally Neurological: A&O x 3. CN II-XII intact, There are no obvious motor or sensory deficits. Coordination appears grossly intact. Speech is normal. Skin: Skin is warm and dry and no rashes or lesions are noted. No lower extremity swelling Psychiatric: Cooperative, appropriate mood & affect, normal judgment. Limitations: no limitations Course Vital Signs 10/02/19 10/02/19 12:54 13:30 Temperature 98.0 F 98.2 F Pulse Rate 85 54 L Respiratory 18 17 Rate Blood Pressure 104/74 97/54 O2 Sat by Pulse 100 100 Oximetry Medical Decision Making - Medical Decision Making 34-year-old feel presenting for left lateral hand. No fracture. Appears soft tissue related. Patient does not appear to have tendon injury at this time. Patient neurovascularly intact. The patient develops decreased range of motion of the digit she is to follow-up promptly with orthopedics or return to the emergency department I did discuss patient having p-wave inversions in all leads and recommended cardiology follow-up. I feel this is an incidental finding and most likely vasovagal as cause of patient's syncopal episodes this happen the past with pain or blood draws. Patient has no obvious murmur vital signs within a couple limits she appears well nontoxic I discussed the case reviewed EKG admitting provider Dr. Ricketts. Patient discharged appearing well Disposition Clinical Impression: Traumatic ecchymosis of left hand, Syncope Disposition: HOME SELF-CARE Condition: Good Instructions (If sedation given, give patient instructions): Ecchymosis (ED) Additional Instructions: Please use medication as discussed. Please follow-up with family doctor in the next 2 days, if symptom persist please follow-up with orthopedic surgery. Please return to emergency room if the symptoms increase or worsen or for any other concerns. Is patient prescribed a controlled substance at d/c from ED?: No Referrals: Valdo Yo MD [Primary Care Provider] - 1-2 days Time of Disposition: 13:36
[2019-10-02 13:48] VITALS: BP 97/54; PULSE 54; RESP 17; TEMP 98.2
== END 2019-10-02 13:53 | disposition home or self-care (01) ==
LOC: EC 12:53
DX: S60.222A Contusion of left hand, initial encounter (principal); R55 Syncope and collapse; F41.9 Anxiety disorder, unspecified; F43.10 Post-traumatic stress disorder, unspecified; Z88.5 Allergy status to narcotic agent; Z88.6 Allergy status to analgesic agent; Z88.1 Allergy status to other antibiotic agents; Z88.8 Allergy status to other drugs, medicaments and biological substances; X58.XXXA Exposure to other specified factors, initial encounter; Y93.71 Activity, boxing
CPT/HCPCS: 93005; 99283

== ENCOUNTER 2019-10-17 12:30 | Emergency (ER) | payer BC, OTHER ==
[2019-10-17 12:41] VITALS: RESP 18; TEMP 97.6
[2019-10-17] MEDS ORDERED: ONDANSETRON 4 MG/2 ML VIAL IVP STA (12:51)
[2019-10-17] MEDS ORDERED: SODIUM CHLORIDE 0.9% 1,000 ML IV STA (12:51)
--- NOTE | 2019-10-17 13:06 | ED ---
Nausea/Vomiting/Diarrhea HPI - General Chief complaint: Nausea/Vomiting/Diarrhea Stated complaint: vomiting Time Seen by Provider: 10/17/19 12:38 Source: patient Mode of arrival: ambulatory Limitations: no limitations - History of Present Illness Initial comments: patient is a 34-year-old female presenting to the emergency Department with complaints of nausea and vomiting that started early this morning. Patient minutes that she was drinking last night, went to bed around midnight and woke up partially 4 AM vomiting. She states she has not been able to stop vomiting since then. She denies any significant abdominal pain does admit to some cramping when the vomiting happens. She denies being at this time. She states she has had this happen in the past and states when "she vomits she vomits a lot." she also admitted to nurse that she smoked marijuana just prior to arrival.She has no further complaints at this time. Upon arrival to the ER, her vital signs are stable. - Related Data Home Medications Medication Instructions Recorded Confirmed ALPRAZolam [Xanax] 0.5 mg PO BID PRN 01/01/19 10/17/19 Multivitamins, Thera [Multivitamin 1 tab PO DAILY 01/01/19 10/17/19 (formulary)] Allergies Allergy/AdvReac Type Severity Reaction Status Date / Time hydromorphone [From Dilaudid] Allergy Confusion Verified 10/17/19 13:47 metoclopramide [From Reglan] Allergy Unknown Verified 10/17/19 13:47 naproxen Allergy Chest Pain Verified 10/17/19 13:47 tioconazole Allergy Swelling Verified 10/17/19 13:47 [From Monistat 1 (tioconazole)] Review of Systems ROS Statement: Those systems with pertinent positive or pertinent negative responses have been documented in the HPI. ROS Other: All systems not noted in ROS Statement are negative. Past Medical History Past Medical History: Syncope Additional Past Medical History / Comment(s): Hx Vertigo. Hx syncope since 2nd grade, no problems in 2 yrs. Crohns disease, IBS. Hx "elevated heart rate a few times during medical procedures." Elevated liver enzymes on 2 occasions, hx kidney stones. "Sysytemic reaction to stress that causes joint pain." Left breast discharge X8 months with pain that comes and goes. Chronic nausea. History of Any Multi-Drug Resistant Organisms: None Reported Past Surgical History: Section, Cholecystectomy Additional Past Surgical History / Comment(s): Jaw surgery X2. Section X4. Past Anesthesia/Blood Transfusion Reactions: Motion Sickness, Postoperative Nausea & Vomiting (PONV) Additional Past Anesthesia/Blood Transfusion Reaction / Comment(s): Hx problems with elevated heart rate during surgeries. Past Psychological History: Anxiety, PTSD Smoking Status: Current every day smoker Past Alcohol Use History: Occasional Past Drug Use History: Marijuana - Past Family History Father Family Medical History: Cancer Additional Family Medical History / Comment(s): Lung cancer. Mother Family Medical History: Cancer Additional Family Medical History / Comment(s): Cervical cancer. General Exam - General Exam Comments Initial Comments: GENERAL: Patient is well-developed and well-nourished. Patient is nontoxic and in no acute distress, looks uncomfortable. HEAD: Atraumatic, normocephalic. EYES: Pupils equal round and reactive to light, extraocular movements intact, sclera anicteric, conjunctiva are normal. Eyelids were unremarkable. ENT: TMs normal, nares patent, oropharynx clear without exudates. Moist mucous membranes. NECK: Normal range of motion, supple without lymphadenopathy or JVD. LUNGS: Unlabored respirations. Breath sounds clear to auscultation bilaterally and equal. No wheezes rales or rhonchi. HEART: Regular rate and rhythm without murmurs, rubs or gallops. ABDOMEN: Soft, nontender, normoactive bowel sounds. No guarding, no rebound. No masses appreciated. : Deferred MUSCULOSKELETAL: Normal extremities with adequate strength and normal range of motion, no pitting or edema. No clubbing or cyanosis. NEUROLOGICAL: Patient is alert and oriented x 3. Motor and sensory are also intact. Cranial nerves II through XII grossly intact. Symmetrical smile. Normal speech, normal gait. PSYCH: Normal mood, normal affect. SKIN: Warm, Dry, normal turgor, no rashes or lesions noted. Limitations: no limitations Course Vital Signs 10/17/19 10/17/19 12:37 14:05 Temperature 97.6 F Pulse Rate 70 57 L Respiratory 18 18 Rate Blood Pressure 116/87 96/71 O2 Sat by Pulse 99 98 Oximetry Medical Decision Making - Medical Decision Making patient is a 34-year-old female here with nausea and vomiting after drinking last night. She denies any acute belly pain, mild cramping. Her vital signs are stable. Patient was given Zofran and 1 L fluids, she has much improvement in her symptoms. No active vomiting in the ER. She is stable for discharge. I will give patient started pack of Zofran to go home with. She can follow up with the PCP as needed. Disposition Clinical Impression: Nausea & vomiting Disposition: HOME SELF-CARE Condition: Stable Instructions (If sedation given, give patient instructions): Acute Nausea and Vomiting (ED) Additional Instructions: Please return to the Emergency Department if symptoms worsen or any other concerns. May use Zofran for additional nausea. Drink lots of water. Is patient prescribed a controlled substance at d/c from ED?: No Referrals: Valdo Yo MD [Primary Care Provider] - 1-2 days
[2019-10-17] MEDS ORDERED: ONDANSETRON 4 MG ODT STARTER PACK 2 TAB BTL PO STA (14:00)
[2019-10-17 14:05] VITALS: BP 96/71; PULSE 57
== END 2019-10-17 14:17 | disposition home or self-care (01) ==
LOC: EC 12:30
DX: R11.2 Nausea with vomiting, unspecified (principal); F41.9 Anxiety disorder, unspecified; F17.200 Nicotine dependence, unspecified, uncomplicated; Z88.5 Allergy status to narcotic agent; Z88.8 Allergy status to other drugs, medicaments and biological substances; Z88.6 Allergy status to analgesic agent; Z88.3 Allergy status to other anti-infective agents
CPT/HCPCS: 99283; 96374; 96361; J2405; S0119

== ENCOUNTER → 2021-03-30 | Outpatient (CLI) | payer OTHER ==
--- NOTE | 2021-03-30 14:28 | MM ---
Reason for exam: clinical finding. History: Excisional biopsy of the left breast, 2019. Took hormonal contraceptives for 5 years. Indicated problem(s): pain in both breasts. Physical Findings: Nurse did not find any significant physical abnormalities on exam. MG 3D Diag Mammo W/Cad KESHAV Bilateral CC and MLO view(s) were taken. The breast tissue is heterogeneously dense. This may lower the sensitivity of mammography. No suspicious calcifications are seen. Left breast clips seen. These results were verbally communicated with the patient and result sheet given to the patient on 03/30/21. ASSESSMENT: Benign, BI-RAD 2 RECOMMENDATION: Routine screening mammogram of both breasts in 1 year. Manage patient on a clinical basis.
== END | disposition home or self-care (01) ==
LOC: RADMAMWWP 13:48
PROVIDERS: ATTEND Surgery
DX: N64.4 Mastodynia (principal); R92.8 Other abnormal and inconclusive findings on diagnostic imaging of breast
CPT/HCPCS: 77066; G0279; 77062

== ENCOUNTER 2021-04-30 20:28 | Emergency (ER) | payer OTHER ==
[2021-04-30 23:05] VITALS: BP 111/71; PULSE 76; RESP 18; TEMP 97.5
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
[2021-05-01] MEDS ORDERED: KETOROLAC 15 MG/ML 1 ML VIAL IM STA (00:15)
== END 2021-05-01 00:42 | disposition home or self-care (01) ==
LOC: EC 20:28
DX: M25.552 Pain in left hip (principal); M54.59 Other low back pain; F41.9 Anxiety disorder, unspecified; F43.10 Post-traumatic stress disorder, unspecified; F17.200 Nicotine dependence, unspecified, uncomplicated; F12.90 Cannabis use, unspecified, uncomplicated; Z88.5 Allergy status to narcotic agent; Z88.1 Allergy status to other antibiotic agents; Z87.442 Personal history of urinary calculi; Z90.49 Acquired absence of other specified parts of digestive tract
CPT/HCPCS: 99284; 96372; 73502; J1885

== ENCOUNTER 2022-03-05 20:46 | Emergency (ER) | payer OTHER ==
[2022-03-05 20:50] VITALS: BP 125/83; PULSE 100; RESP 20; TEMP 98
[2022-03-05] MEDS ORDERED: IBUPROFEN 400 MG TAB PO STA (21:09)
[2022-03-05] MEDS ORDERED: ACETAMINOPHEN TAB 325 MG TAB PO STA (21:09)
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
[2022-03-05] MEDS ORDERED: ACET/COD 300 MG/30 MG STARTER PACK 6 TAB BTL PO STA (21:23)
--- NOTE | 2022-03-05 21:41 | XR ---
EXAMINATION TYPE: XR hand complete RT DATE OF EXAM: 03/05/2022 9:11 PM INDICATION: Patient age:Female; 36 years old; Reason for study: right 5th finger injury; COMPARISON: None TECHNIQUE: Frontal, lateral and oblique views of the left hand were obtained. FINDINGS: Avulsion injury to the right fifth digit distal phalanx base on the dorsal aspect. There is soft tissue swelling. No additional fractures identified. IMPRESSION: Avulsion fracture of the right fifth digit distal phalanx base dorsally.
== END 2022-03-05 21:30 | disposition home or self-care (01) ==
LOC: EC 20:46
DX: M20.011 Mallet finger of right finger(s) (principal); F41.9 Anxiety disorder, unspecified; F17.200 Nicotine dependence, unspecified, uncomplicated; F12.90 Cannabis use, unspecified, uncomplicated; Z88.5 Allergy status to narcotic agent; Z88.6 Allergy status to analgesic agent; Z88.8 Allergy status to other drugs, medicaments and biological substances; Z88.1 Allergy status to other antibiotic agents; X50.9XXA Other and unspecified overexertion or strenuous movements or postures, initial encounter
CPT/HCPCS: 99283

== ENCOUNTER 2023-06-15 22:30 | Emergency (ER) | payer OTHER ==
[2023-06-15 22:58] VITALS: RESP 18; TEMP 98.4
[2023-06-16] MEDS: PANTOPRAZOLE 40 MG/10 ML VIAL IVP STA (00:08)
[2023-06-16] MEDS: ONDANSETRON 4 MG/2 ML VIAL IVP STA (00:09)
[2023-06-16] MEDS: SODIUM CHLORIDE 0.9% 2,000 ML IV STA (00:09)
[2023-06-16 00:20] LABS: Basophils # (A) 0.1 k/uL (0-0.2); Basophils % (A) 0 %; Eosinophils # (A) 0.3 k/uL (0-0.7); Eosinophils % (A) 1 %; HCT 44.8 % (34.0-46.0); Lymphocytes # (A) 0.7 k/uL (1.0-4.8); Lymphocytes % (A) 3 %; MCH 29.9 pg (25.0-35.0); MCHC 33.4 g/dL (31.0-37.0); MCV 89.6 fL (80.0-100.0); Monocytes # (A) 0.8 k/uL (0-1.0); Monocytes % (A) 4 %; Neutrophils # (A) 19.6 k/uL (1.3-7.7); Neutrophils % (A) 91 %; Platelet Count 267 k/uL (150-450); RDW 12.7 % (11.5-15.5); WBC 21.5 k/uL (3.8-10.6)
[2023-06-16 00:30] LABS: Appearance,Urine Cloudy (Clear); Bacteria,Urine Rare /hpf; Bilirubin,Urine 1+ (Negative); Blood,Urine Negative (Negative); Color,Urine Yellow; Glucose,Urine (UA) Negative (Negative); Granular Casts,Urine 2 /lpf (0); Hyaline Casts,Urine 4 /lpf (0-2); Ketones,Urine 3+ (Negative); Leukocyte Esterase,Urine Negative (Negative); Mucus,Urine Many /hpf; Nitrite,Urine Negative (Negative); PH, Urine 5.5 (5.0-8.0); Protein,Urine 1+ (Negative); RBC,Urine 3 /hpf (0-5); Specific Gravity,Urine 1.036 (1.001-1.035); Squamous Epithelial Cell,Urine 3 /hpf (0-4); WBC,Urine 2 /hpf (0-5)
[2023-06-16 00:55] LABS: HCG,Qualitative Serum Not Detected
[2023-06-16 00:58] LABS: ALT 28 U/L (4-34); AST 34 U/L (14-36); African American GFR (CKD) >90 (>60 ml/min/1.73 sqM); Albumin 4.7 g/dL (3.5-5.0); Alkaline Phosphatase 88 U/L (38-126); Amylase 58 U/L (30-110); Anion Gap 16 mmol/L; Blood Urea Nitrogen 22 mg/dL (7-17); Calcium 9.7 mg/dL (8.4-10.2); Carbon Dioxide 15 mmol/L (22-30); Chloride 109 mmol/L (98-107); Glucose 99 mg/dL (74-99); Lipase 62 U/L (23-300); Non-African American GFR(CKD) >90 (>60 ml/min/1.73 sqM); Potassium 3.9 mmol/L (3.5-5.1); Sodium 140 mmol/L (137-145); Total Bilirubin 2.4 mg/dL (0.2-1.3)
[2023-06-16] MEDS: LOPERAMIDE 2 MG CAP PO STA (01:05)
[2023-06-16] MEDS: ALPRAZolam 0.5 MG TAB PO STA (01:05)
--- NOTE | 2023-06-16 01:25 | ED ---
General Adult HPI - General Chief complaint: Nausea/Vomiting/Diarrhea Stated complaint: NVD Time Seen by Provider: 06/15/23 23:16 Source: patient, RN notes reviewed, old records reviewed Mode of arrival: ambulatory Limitations: no limitations - History of Present Illness Initial comments: Is a 37-year-old female who presents emergency department with numerous episodes of nausea, vomiting, diarrhea throughout the day today. No blood in either stool or emesis. No significant past medical history other than anxiety. Denies chest pain or shortness of breath. Does feel anxious. Her daughter has similar symptoms and is worried she may have caught a virus. Presents for further evaluation. Has not been able to hold anything down orally all day. Denies any fevers, urinary complaints. Denies abdominal pain. Denies any vaginal discharge or bleeding. - Related Data Home Medications Medication Instructions Recorded Confirmed ALPRAZolam [Xanax] 0.5 mg PO BID PRN 01/01/19 10/17/19 Multivitamins, Thera [Multivitamin 1 tab PO DAILY 01/01/19 10/17/19 (formulary)] Previous Rx's Medication Instructions Recorded Loperamide [Imodium] 2 mg PO TID PRN 5 Days #15 capsule 06/16/23 Allergies Allergy/AdvReac Type Severity Reaction Status Date / Time hydromorphone [From Dilaudid] Allergy Confusion Verified 06/15/23 22:58 metoclopramide [From Reglan] Allergy Unknown Verified 06/15/23 22:58 naproxen Allergy Chest Pain Verified 06/15/23 22:58 tioconazole Allergy Swelling Verified 06/15/23 22:58 [From Monistat 1 (tioconazole)] Review of Systems ROS Statement: Those systems with pertinent positive or pertinent negative responses have been documented in the HPI. Review of Systems: CONST: Denies fever EYES: Denies blurry vision ENT: Denies nasal congestion C/V: Denies Chest pain RESP: Denies shortness of breath GI: Endorses nausea, vomiting, diarrhea. : Denies dysuria SKIN: Denies rash. MSK: Denies joint pain. NEURO: Denies headache ROS Other: All systems not noted in ROS Statement are negative. Past Medical History Past Medical History: Syncope Additional Past Medical History / Comment(s): Hx Vertigo. Hx syncope since 2nd grade, no problems in 2 yrs. Crohns disease, IBS. Hx "elevated heart rate a few times during medical procedures." Elevated liver enzymes on 2 occasions, hx kidney stones. "Sysytemic reaction to stress that causes joint pain." Left breast discharge X8 months with pain that comes and goes. Chronic nausea. History of Any Multi-Drug Resistant Organisms: None Reported Past Surgical History: Section, Cholecystectomy Additional Past Surgical History / Comment(s): Jaw surgery X2. Section X4. Past Anesthesia/Blood Transfusion Reactions: Motion Sickness, Postoperative Nausea & Vomiting (PONV) Additional Past Anesthesia/Blood Transfusion Reaction / Comment(s): Hx problems with elevated heart rate during surgeries. Past Psychological History: Anxiety, PTSD Smoking Status: Current every day smoker, Vaper Past Alcohol Use History: Occasional Past Drug Use History: Marijuana - Past Family History Father Family Medical History: Cancer Additional Family Medical History / Comment(s): Lung cancer. Mother Family Medical History: Cancer Additional Family Medical History / Comment(s): Cervical cancer. General Exam - General Exam Comments Initial Comments: General: Appears anxious. HEAD: Normal with no signs of head trauma. EYES: PERRLA, EOMI, conjunctiva normal, no discharge. ENT: Hearing grossly intact, normal oropharynx. Dry mucous membranes. RESPIRATORY: Clear breath sounds bilaterally. No wheezes, rales, or rhonchi. C/V: Regular rate and rhythm. S1 and S2 auscultated, no edema, peripheral pulses 2+ and intact throughout ABD: Abd is soft, nontender, nondistended EXT: Normal range of motion, no obvious deformity SKIN: No rashes or lesions observed on exposed skin. NEURO: Alert and oriented x 4. Limitations: no limitations Course Vital Signs 06/15/23 06/16/23 22:54 03:06 Temperature 98.4 F Pulse Rate 80 69 Respiratory 18 18 Rate Blood Pressure 119/77 99/63 O2 Sat by Pulse 98 100 Oximetry Medical Decision Making - Medical Decision Making Was pt. sent in by a medical professional or institution (, PA, LABOR UTILIZATION SUPERINTENDENT, urgent care, hospital, or [facility]...) When possible be specific @ -No Did you speak to anyone other than the patient for history (EMS, parent, family, police, friend...)? What history was obtained from this source @ -No Did you review nursing and triage notes (agree or disagree)? Why? @ -I reviewed and agree with nursing and triage notes Were old charts reviewed (outside hosp., previous admission, EMS record, old EKG, old radiological studies, urgent care reports/EKG's, [facility] records)? Report findings @ -No old charts were reviewed Differential Diagnosis (chest pain, altered mental status, abdominal pain women, abdominal pain men, vaginal bleeding, weakness, fever, dyspnea, syncope, headache, dizziness, GI bleed, back pain, seizure, CVA, palpatations, mental health, musculoskeletal)? @ -Nausea, vomiting, dehydration, gastroenteritis, gastritis, UTI, electrolyte abnormalities. This list is not all inclusive. EKG interpreted by me (3pts min.). @ -None done X-rays interpreted by me (1pt min.). @ -None done CT interpreted by me (1pt min.). @ -None done U/S interpreted by me (1pt. min.). @ -None done What testing was considered but not performed or refused? (CT, X-rays, U/S, labs)? Why? @ -Considered imaging of the abdomen and pelvis however patient declines at this time after discussion. She is feeling improved after initial treatment and she has no abdominal pain. I do believe this is reasonable but we will continue to monitor. What meds were considered but not given or refused? Why? @ -None Did you discuss the management of the patient with other professionals (professionals i.e. , PA, LABOR UTILIZATION SUPERINTENDENT, lab, RT, psych nurse, social worker clinical, design printing machine set up operator, teacher, trust officer, catalytic case operator)? Give summary @ -No Was smoking cessation discussed for >3mins.? @ -No Was critical care preformed (if so, how long)? @ -No Were there social determinants of health that impacted care today? How? (Homelessness, low income, unemployed, alcoholism, drug addiction, transportation, low edu. Level, literacy, decrease access to med. care, long-term, rehab)? @ -No Was there de-escalation of care discussed even if they declined (Discuss DNR or withdrawal of care, Hospice)? DNR status @ -No What co-morbidities impacted this encounter? (DM, HTN, Smoking, COPD, CAD, Cancer, CVA, ARF, Chemo, Hep., AIDS, mental health diagnosis, sleep apnea, morbid obesity)? @ -None Was patient admitted / discharged? Hospital course, mention meds given and route, prescriptions, significant lab abnormalities, going to OR and other pertinent info. @ -Based on the patient's presentation and physical exam, presents emergency department complaining of nausea, vomiting, diarrhea for 1 day without being able to hold any oral intake in. Denies any other acute complaints. Does have positive sick contact and her daughter with identical complaints. Presents for further evaluation. We will obtain basic abdominal labs as well as infectious labs. Patient in agreement this plan. We will defer imaging at this time after discussion she was in agreement this plan. Patient be symptomatically treated with IV fluids, antiemetics, Protonix as well as a dose of oral Xanax and Imodium. Vital signs are currently within acceptable limits. Patient was in agreement this plan. Patient's labs remarkable for a leukocytosis of 21 which is likely reactive as the patient does have 3+ ketones in her urine. Blood work remarkable for slight acidosis as well also likely secondary to her underlying pathology of nausea, vomiting, diarrhea. On reevaluation after approximately 1 fluid bolus patient is feeling improved and tolerated oral pills. We will continue to monitor. Discussed CT imaging again at this time and we both agreed to defer at this time. Patient was in agreement this plan. Following second liter of fluid, patient is tolerating oral intake and would like to leave. I believe this is reasonable. Strict return precautions discussed. Likely has a viral gastroenteritis. I will provide the patient with a prescription for ODT Zofran, loperamide. I instructed the patient to follow up with their PCP in the next 1-3 days.. I explained that the patient should return to the emergency department if they experience any worsening symptoms. Strict return precautions were discussed with the patient. The patient expressed understanding of these instructions. I answered all questions that the patient had. The patient was discharged home in good condition with their prescriptions and follow up information. Undiagnosed new problem with uncertain prognosis? @ -No Drug Therapy requiring intensive monitoring for toxicity (Heparin, Nitro, Insulin, Cardizem)? @ -No Were any procedures done? @ -No Diagnosis/symptom? @ -Gastroenteritis, dehydration Acute, or Chronic, or Acute on Chronic? @ -Acute Uncomplicated (without systemic symptoms) or Complicated (systemic symptoms)? @ -Complicated Side effects of treatment? @ -None Exacerbation, Progression, or Severe Exacerbation] @ -No Poses a threat to life or bodily function? @ -Unlikely - Lab Data Result diagrams: 06/16/23 00:10 06/16/23 00:10 Lab Results 06/16/23 06/16/23 06/16/23 Range/Units 00:10 00:10 00:10 WBC 21.5 H (3.8-10.6) k/uL RBC 5.00 (3.80-5.40) m/uL Hgb 15.0 (11.4-16.0) gm/dL Hct 44.8 (34.0-46.0) % MCV 89.6 (80.0-100.0) fL MCH 29.9 (25.0-35.0) pg MCHC 33.4 (31.0-37.0) g/dL RDW 12.7 (11.5-15.5) % Plt Count 267 (150-450) k/uL MPV 8.0 Neutrophils % 91 % Lymphocytes % 3 % Monocytes % 4 % Eosinophils % 1 % Basophils % 0 % Neutrophils # 19.6 H (1.3-7.7) k/uL Lymphocytes # 0.7 L (1.0-4.8) k/uL Monocytes # 0.8 (0-1.0) k/uL Eosinophils # 0.3 (0-0.7) k/uL Basophils # 0.1 (0-0.2) k/uL Sodium 140 (137-145) mmol/L Potassium 3.9 (3.5-5.1) mmol/L Chloride 109 H (98-107) mmol/L Carbon Dioxide 15 L (22-30) mmol/L Anion Gap 16 mmol/L BUN 22 H (7-17) mg/dL Creatinine 0.68 (0.52-1.04) mg/dL Est GFR (CKD-EPI)AfAm >90 (>60 ml/min/1.73 sqM) Est GFR (CKD-EPI)NonAf >90 (>60 ml/min/1.73 sqM) Glucose 99 (74-99) mg/dL Calcium 9.7 (8.4-10.2) mg/dL Total Bilirubin 2.4 H (0.2-1.3) mg/dL AST 34 (14-36) U/L ALT 28 (4-34) U/L Alkaline Phosphatase 88 (38-126) U/L Total Protein 8.0 (6.3-8.2) g/dL Albumin 4.7 (3.5-5.0) g/dL Amylase 58 (30-110) U/L Lipase 62 (23-300) U/L HCG, Qual Not Detected Urine Color Yellow Urine Appearance Cloudy H (Clear) Urine pH 5.5 (5.0-8.0) Ur Specific [place] 1.036 H (1.001-1.035) Urine Protein 1+ H (Negative) Urine Glucose (UA) Negative (Negative) Urine Ketones 3+ H (Negative) Urine Blood Negative (Negative) Urine Nitrite Negative (Negative) Urine Bilirubin 1+ H (Negative) Urine Urobilinogen 2.0 (<2.0) mg/dL Ur Leukocyte Esterase Negative (Negative) Urine RBC 3 (0-5) /hpf Urine WBC 2 (0-5) /hpf Ur Squamous Epith Cells 3 (0-4) /hpf Urine Bacteria Rare H (None) /hpf Hyaline Casts 4 H (0-2) /lpf Granular Casts 2 (0) /lpf Urine Mucus Many H (None) /hpf Influenza Type A (PCR) (Not Detectd) Influenza Type B (PCR) (Not Detectd) RSV (PCR) (Not Detectd) SARS-CoV-2 (PCR) (Not Detectd) 06/16/23 Range/Units 00:10 WBC (3.8-10.6) k/uL RBC (3.80-5.40) m/uL Hgb (11.4-16.0) gm/dL Hct (34.0-46.0) % MCV (80.0-100.0) fL MCH (25.0-35.0) pg MCHC (31.0-37.0) g/dL RDW (11.5-15.5) % Plt Count (150-450) k/uL MPV Neutrophils % % Lymphocytes % % Monocytes % % Eosinophils % % Basophils % % Neutrophils # (1.3-7.7) k/uL Lymphocytes # (1.0-4.8) k/uL Monocytes # (0-1.0) k/uL Eosinophils # (0-0.7) k/uL Basophils # (0-0.2) k/uL Sodium (137-145) mmol/L Potassium (3.5-5.1) mmol/L Chloride (98-107) mmol/L Carbon Dioxide (22-30) mmol/L Anion Gap mmol/L BUN (7-17) mg/dL Creatinine (0.52-1.04) mg/dL Est GFR (CKD-EPI)AfAm (>60 ml/min/1.73 sqM) Est GFR (CKD-EPI)NonAf (>60 ml/min/1.73 sqM) Glucose (74-99) mg/dL Calcium (8.4-10.2) mg/dL Total Bilirubin (0.2-1.3) mg/dL AST (14-36) U/L ALT (4-34) U/L Alkaline Phosphatase (38-126) U/L Total Protein (6.3-8.2) g/dL Albumin (3.5-5.0) g/dL Amylase (30-110) U/L Lipase (23-300) U/L HCG, Qual Urine Color Urine Appearance (Clear) Urine pH (5.0-8.0) Ur Specific [place] (1.001-1.035) Urine Protein (Negative) Urine Glucose (UA) (Negative) Urine Ketones (Negative) Urine Blood (Negative) Urine Nitrite (Negative) Urine Bilirubin (Negative) Urine Urobilinogen (<2.0) mg/dL Ur Leukocyte Esterase (Negative) Urine RBC (0-5) /hpf Urine WBC (0-5) /hpf Ur Squamous Epith Cells (0-4) /hpf Urine Bacteria (None) /hpf Hyaline Casts (0-2) /lpf Granular Casts (0) /lpf Urine Mucus (None) /hpf Influenza Type A (PCR) Not Detected (Not Detectd) Influenza Type B (PCR) Not Detected (Not Detectd) RSV (PCR) Not Detected (Not Detectd) SARS-CoV-2 (PCR) Not Detected (Not Detectd) Disposition Clinical Impression: Gastroenteritis, Dehydration Disposition: HOME SELF-CARE Condition: Fair Instructions (If sedation given, give patient instructions): Gastroenteritis (ED), Acute Nausea and Vomiting (ED), Acute Diarrhea (ED) Prescriptions: Loperamide [Imodium] 2 mg PO TID PRN 5 Days #15 capsule PRN Reason: Diarrhea Is patient prescribed a controlled substance at d/c from ED?: No Referrals: Valdo Yo MD [Primary Care Provider] - 1-2 days Time of Disposition: 02:36
[2023-06-16] MEDS: IBUPROFEN 800 MG TAB PO STA (02:37)
[2023-06-16] MEDS: ONDANSETRON 4 MG ODT STARTER PACK 2 TAB BTL PO STA (02:39)
[2023-06-16 03:31] VITALS: BP 99/63; PULSE 69
== END 2023-06-16 03:06 | disposition home or self-care (01) ==
LOC: EC 22:30
DX: K50.90 Crohn's disease, unspecified, without complications (principal); E86.0 Dehydration; F17.290 Nicotine dependence, other tobacco product, uncomplicated; Z88.5 Allergy status to narcotic agent; Z88.8 Allergy status to other drugs, medicaments and biological substances; Z90.49 Acquired absence of other specified parts of digestive tract; Z11.52 Encounter for screening for COVID-19
CPT/HCPCS: 36415; 80053; 82150; 83690; 85025; 81001; 84703; 87636; 99284; 96374; 96375; 96361 ×3; J2405; S0119; C9113

== ENCOUNTER 2024-03-17 16:29 | Emergency (ER) | payer OTHER ==
--- NOTE | 2024-03-17 17:31 | ED ---
URI HPI - General Chief Complaint: Upper Respiratory Infection Stated Complaint: cough, difficulty breathing, chest pain Time Seen by Provider: 03/17/24 16:59 Source: patient, RN notes reviewed Mode of arrival: ambulatory Limitations: no limitations - History of Present Illness Initial Comments: 38-year-old female into the ER with chief complaint of cough x 1 week with nasal congestion and fatigue. States she was seen at urgent care 3 days ago where bud pearce diagnosed her with pneumonia and started her on azithromycin. States cough is productive and continues to worsen. Cough is worse at night and in the morning. States last night she was experiencing chest tightness with numbness down her right arm. States the episode lasted about 30 minutes. States she has had chest pain in the past however has never been seen by correctional medicine physician. She she currently vapes and is a previous tobacco smoker. Denies any current chest pain or shortness of breath. - Related Data Home Medications Medication Instructions Recorded Confirmed ALPRAZolam [Xanax] 0.5 mg PO BID PRN 01/01/19 10/17/19 Multivitamins, Thera [Multivitamin 1 tab PO DAILY 01/01/19 10/17/19 (formulary)] Previous Rx's Medication Instructions Recorded Loperamide [Imodium] 2 mg PO TID PRN 5 Days #15 capsule 06/16/23 predniSONE [Deltasone] 40 mg PO DAILY 5 Days #10 tab 03/17/24 Allergies Allergy/AdvReac Type Severity Reaction Status Date / Time hydromorphone [From Dilaudid] Allergy Confusion Verified 06/15/23 22:58 metoclopramide [From Reglan] Allergy Unknown Verified 06/15/23 22:58 naproxen Allergy Chest Pain Verified 06/15/23 22:58 tioconazole Allergy Swelling Verified 06/15/23 22:58 [From Monistat 1 (tioconazole)] Review of Systems ROS Statement: Those systems with pertinent positive or pertinent negative responses have been documented in the HPI. ROS Other: All systems not noted in ROS Statement are negative. Past Medical History Past Medical History: Syncope Additional Past Medical History / Comment(s): Hx Vertigo. Hx syncope since 2nd grade, no problems in 2 yrs. Crohns disease, IBS. Hx "elevated heart rate a few times during medical procedures." Elevated liver enzymes on 2 occasions, hx kidney stones. "Sysytemic reaction to stress that causes joint pain." Left breast discharge X8 months with pain that comes and goes. Chronic nausea. History of Any Multi-Drug Resistant Organisms: None Reported Past Surgical History: Section, Cholecystectomy Additional Past Surgical History / Comment(s): Jaw surgery X2. Section X4. Past Anesthesia/Blood Transfusion Reactions: Motion Sickness, Postoperative Nausea & Vomiting (PONV) Additional Past Anesthesia/Blood Transfusion Reaction / Comment(s): Hx problems with elevated heart rate during surgeries. Past Psychological History: Anxiety, PTSD Smoking Status: Current every day smoker, Vaper Past Alcohol Use History: Occasional Past Drug Use History: Marijuana - Past Family History Father Family Medical History: Cancer Additional Family Medical History / Comment(s): Lung cancer. Mother Family Medical History: Cancer Additional Family Medical History / Comment(s): Cervical cancer. General Exam Limitations: no limitations General appearance: alert, in no apparent distress Head exam: Present: atraumatic, normocephalic, normal inspection Eye exam: Present: normal appearance, PERRL, EOMI. Absent: scleral icterus, conjunctival injection, periorbital swelling ENT exam: Present: normal exam, mucous membranes moist Neck exam: Present: normal inspection. Absent: tenderness, meningismus, lymphadenopathy Respiratory exam: Present: normal lung sounds bilaterally. Absent: respiratory distress, wheezes, rales, rhonchi, stridor Cardiovascular Exam: Present: regular rate, normal rhythm, normal heart sounds. Absent: systolic murmur, diastolic murmur, rubs, gallop, clicks GI/Abdominal exam: Present: soft, normal bowel sounds. Absent: distended, tenderness, guarding, rebound, rigid Neurological exam: Present: alert, oriented X3 Psychiatric exam: Present: normal affect, normal mood Skin exam: Present: warm, dry, intact, normal color. Absent: rash Course Vital Signs 03/17/24 16:46 Temperature 99.4 F Pulse Rate 81 Respiratory 20 Rate Blood Pressure 123/72 O2 Sat by Pulse 98 Oximetry Medical Decision Making - Medical Decision Making Was pt. sent in by a medical professional or institution (, PA, FULFILLMENT COORDINATOR, urgent care, hospital, or care home...) When possible be specific @ -No Did you speak to anyone other than the patient for history (EMS, parent, family, police, friend...)? What history was obtained from this source @ -No Did you review nursing and triage notes (agree or disagree)? Why? @ -I reviewed and agree with nursing and triage notes Were old charts reviewed (outside hosp., previous admission, EMS record, old EK G, old radiological studies, urgent care reports/EKG's, care home records)? Report findings @ -No old charts were reviewed Differential Diagnosis (chest pain, altered mental status, abdominal pain women, abdominal pain men, vaginal bleeding, weakness, fever, dyspnea, syncope, headache, dizziness, GI bleed, back pain, seizure, CVA, palpatations, mental health, musculoskeletal)? @ -Pneumonia, influenza, COVID, ACS, viral URI, bronchitis EKG interpreted by me (3pts min.). @ -As above X-rays interpreted by me (1pt min.). @ -Chest x-ray no acute cardiopulmonary process CT interpreted by me (1pt min.). @ -None done U/S interpreted by me (1pt. min.). @ -None done What testing was considered but not performed or refused? (CT, X-rays, U/S, labs)? Why? @ -None What meds were considered but not given or refused? Why? @ -None Did you discuss the management of the patient with other professionals (professionals i.e. , PA, FULFILLMENT COORDINATOR, lab, RT, psych nurse, social insurance specialist, end user support specialist, teacher, navy airspace officer, cyanide case hardener)? Give summary @ -No Was smoking cessation discussed for >3mins.? @ -No Was critical care preformed (if so, how long)? @ -No Were there social determinants of health that impacted care today? How? (Homelessness, low income, unemployed, alcoholism, drug addiction, transportation, low edu. Level, literacy, decrease access to med. care, [facility], rehab)? @ -No Was there de-escalation of care discussed even if they declined (Discuss DNR or withdrawal of care, Hospice)? DNR status @ -No What co-morbidities impacted this encounter? (DM, HTN, Smoking, COPD, CAD, Cancer, CVA, ARF, Chemo, Hep., AIDS, mental health diagnosis, sleep apnea, morbid obesity)? @ -None Was patient admitted / discharged? Hospital course, mention meds given and route, prescriptions, significant lab abnormalities, going to OR and other pertinent info. @ -Discharge. This is a 38-year-old female presenting for cough x 1 week. Patient has been on azithromycin for 4 days with little improvement. Patient also reports episode of chest pain last night. Patient is afebrile, satting 98% on room air. Heart and lungs clear to auscultation bilaterally. No acute respiratory distress. Heart score is low risk at 2. EKG reveals normal sinus rhythm with no ST changes. Lab work unremarkable. Patient is negative for COVID, influenza, and RSV. Chest x-ray reveals no acute cardiopulmonary process. Results discussed with patient. I suspect symptoms are due to acute viral bronchitis. Prescribed short course of steroids. Appropriate return precautions and follow-up care discussed. Case was discussed with my ED attending Dr. Huber. Undiagnosed new problem with uncertain prognosis? @ -No Drug Therapy requiring intensive monitoring for toxicity (Heparin, Nitro, Insulin, Cardizem)? @ -No Were any procedures done? @ -No Diagnosis/symptom? @ -Acute viral bronchitis Acute, or Chronic, or Acute on Chronic? @ -Acute Uncomplicated (without systemic symptoms) or Complicated (systemic symptoms)? @ -Uncomplicated Side effects of treatment? @ -No Exacerbation, Progression, or Severe Exacerbation? @ -No Poses a threat to life or bodily function? How? (Chest pain, USA, IA, pneumonia, PE, COPD, DKA, ARF, appy, cholecystitis, CVA, Diverticulitis, Homicidal, Suicidal, threat to staff... and all critical care pts) @ -No - Lab Data Result diagrams: 03/17/24 17:52 03/17/24 17:52 Lab Results 03/17/24 03/17/24 03/17/24 Range/Units 17:37 17:52 17:52 WBC 10.5 (3.8-10.6) k/uL RBC 4.36 (3.80-5.40) m/uL Hgb 12.9 (11.4-16.0) gm/dL Hct 38.1 (34.0-46.0) % MCV 87.4 (80.0-100.0) fL MCH 29.5 (25.0-35.0) pg MCHC 33.7 (31.0-37.0) g/dL RDW 13.7 (11.5-15.5) % Plt Count 295 (150-450) k/uL MPV 7.6 Neutrophils % 71 % Lymphocytes % 21 % Monocytes % 5 % Eosinophils % 2 % Basophils % 1 % Neutrophils # 7.5 (1.3-7.7) k/uL Lymphocytes # 2.2 (1.0-4.8) k/uL Monocytes # 0.5 (0-1.0) k/uL Eosinophils # 0.2 (0-0.7) k/uL Basophils # 0.1 (0-0.2) k/uL Sodium 137 (137-145) mmol/L Potassium 3.8 (3.5-5.1) mmol/L Chloride 103 (98-107) mmol/L Carbon Dioxide 23 (22-30) mmol/L Anion Gap 11 mmol/L BUN 13 (7-17) mg/dL Creatinine 0.78 (0.52-1.04) mg/dL Est GFR (CKD-EPI)AfAm >90 (>60 ml/min/1.73 sqM) Est GFR (CKD-EPI)NonAf >90 (>60 ml/min/1.73 sqM) Glucose 107 H (74-99) mg/dL Calcium 9.4 (8.4-10.2) mg/dL Total Bilirubin 1.0 (0.2-1.3) mg/dL AST 32 (14-36) U/L ALT 33 (4-34) U/L Alkaline Phosphatase 74 (38-126) U/L Troponin I (0.000-0.034) ng/mL Total Protein 7.3 (6.3-8.2) g/dL Albumin 4.3 (3.5-5.0) g/dL HCG, Qual Influenza Type A (PCR) Not Detected (Not Detectd) Influenza Type B (PCR) Not Detected (Not Detectd) RSV (PCR) Not Detected (Not Detectd) SARS-CoV-2 (PCR) Not Detected (Not Detectd) 03/17/24 03/17/24 Range/Units 17:52 17:52 WBC (3.8-10.6) k/uL RBC (3.80-5.40) m/uL Hgb (11.4-16.0) gm/dL Hct (34.0-46.0) % MCV (80.0-100.0) fL MCH (25.0-35.0) pg MCHC (31.0-37.0) g/dL RDW (11.5-15.5) % Plt Count (150-450) k/uL MPV Neutrophils % % Lymphocytes % % Monocytes % % Eosinophils % % Basophils % % Neutrophils # (1.3-7.7) k/uL Lymphocytes # (1.0-4.8) k/uL Monocytes # (0-1.0) k/uL Eosinophils # (0-0.7) k/uL Basophils # (0-0.2) k/uL Sodium (137-145) mmol/L Potassium (3.5-5.1) mmol/L Chloride (98-107) mmol/L Carbon Dioxide (22-30) mmol/L Anion Gap mmol/L BUN (7-17) mg/dL Creatinine (0.52-1.04) mg/dL Est GFR (CKD-EPI)AfAm (>60 ml/min/1.73 sqM) Est GFR (CKD-EPI)NonAf (>60 ml/min/1.73 sqM) Glucose (74-99) mg/dL Calcium (8.4-10.2) mg/dL Total Bilirubin (0.2-1.3) mg/dL AST (14-36) U/L ALT (4-34) U/L Alkaline Phosphatase (38-126) U/L Troponin I <0.012 (0.000-0.034) ng/mL Total Protein (6.3-8.2) g/dL Albumin (3.5-5.0) g/dL HCG, Qual Not Detected Influenza Type A (PCR) (Not Detectd) Influenza Type B (PCR) (Not Detectd) RSV (PCR) (Not Detectd) SARS-CoV-2 (PCR) (Not Detectd) - EKG Data -: EKG Interpreted by Me EKG Comments: EKG reveals normal sinus rhythm with no ST changes. Ventricular rate 65 bpm, MD interval 96, QRS duration 91, QT/QTc 396/407 Disposition Clinical Impression: Acute viral bronchiolitis Disposition: HOME SELF-CARE Condition: Stable Instructions (If sedation given, give patient instructions): Acute Bronchitis (ED) Additional Instructions: Take prednisone as prescribed. Please return to the Emergency Department if symptoms worsen or any other concerns. Prescriptions: predniSONE [Deltasone] 40 mg PO DAILY 5 Days #10 tab Is patient prescribed a controlled substance at d/c from ED?: No Referrals: Valdo Yo MD [Primary Care Provider] - 1-2 days Time of Disposition: 19:22
[2024-03-17] MEDS: ACETAMINOPHEN TAB 500 MG TAB PO STA (17:55)
[2024-03-17] MEDS: SODIUM CHLORIDE 0.9% 500 ML 500 ML IV STA (17:56)
[2024-03-17 18:00] LABS: Basophils # (A) 0.1 k/uL (0-0.2); Basophils % (A) 1 %; Eosinophils # (A) 0.2 k/uL (0-0.7); Eosinophils % (A) 2 %; HCT 38.1 % (34.0-46.0); HGB 12.9 gm/dL (11.4-16.0); Lymphocytes # (A) 2.2 k/uL (1.0-4.8); Lymphocytes % (A) 21 %; MCH 29.5 pg (25.0-35.0); MCHC 33.7 g/dL (31.0-37.0); MCV 87.4 fL (80.0-100.0); Mean Platelet Volume 7.6; Monocytes # (A) 0.5 k/uL (0-1.0); Monocytes % (A) 5 %; Neutrophils # (A) 7.5 k/uL (1.3-7.7); Neutrophils % (A) 71 %; Platelet Count 295 k/uL (150-450); RBC 4.36 m/uL (3.80-5.40); RDW 13.7 % (11.5-15.5); WBC 10.5 k/uL (3.8-10.6)
[2024-03-17 18:11] LABS: ALT 33 U/L (4-34); AST 32 U/L (14-36); African American GFR (CKD) >90 (>60 ml/min/1.73 sqM); Albumin 4.3 g/dL (3.5-5.0); Alkaline Phosphatase 74 U/L (38-126); Anion Gap 11 mmol/L; Blood Urea Nitrogen 13 mg/dL (7-17); Calcium 9.4 mg/dL (8.4-10.2); Carbon Dioxide 23 mmol/L (22-30); Chloride 103 mmol/L (98-107); Glucose 107 mg/dL (74-99); Non-African American GFR(CKD) >90 (>60 ml/min/1.73 sqM); Potassium 3.8 mmol/L (3.5-5.1); Sodium 137 mmol/L (137-145); Total Protein 7.3 g/dL (6.3-8.2)
[2024-03-17 18:17] LABS: Influenza A Not Detected (Not Detectd); Influenza B Not Detected (Not Detectd); RSV Not Detected (Not Detectd)
--- NOTE | 2024-03-17 19:06 | XR ---
EXAMINATION TYPE: XR chest 2V DATE OF EXAM: 03/17/2024 CLINICAL HISTORY: Cough TECHNIQUE: Frontal and lateral views of the chest are obtained. COMPARISON: Chest x-ray from May 25 2018 FINDINGS: There is no focal air space opacity, pleural effusion, or pneumothorax seen. The cardiac silhouette size is within normal limits. The osseous structures are intact. Cholecystectomy clips a re present. IMPRESSION: No acute pulmonary process. [facility], , 03/17/2024 7:04 PM
[2024-03-17 19:37] VITALS: BP 119/82; PULSE 67; RESP 18; TEMP 98.3
== END 2024-03-17 19:36 | disposition home or self-care (01) ==
LOC: EC 16:29
DX: J21.8 Acute bronchiolitis due to other specified organisms (principal); F17.290 Nicotine dependence, other tobacco product, uncomplicated; Z88.5 Allergy status to narcotic agent; Z88.8 Allergy status to other drugs, medicaments and biological substances
CPT/HCPCS: 36415; 71046; 80053; 84484; 84703; 85025; 87636; 93005; 96360; 99285